=== PATIENT | female | born 1995 | race African-American/Black ===

== ENCOUNTER 2019-12-19 19:27 | Emergency (ER) | payer MEDICARE ==
[~2019-12-19] VITALS: Ht 160 cm; Wt 97.5 kg
--- OUTSIDE RECORDS SUMMARY | 2019-12-19 19:31 | XMS REPORT ---
[facility] Address Unknown Phone Unavailable Care Team Providers Care Culture Room Worker Name Role Phone Ella MODI Unavailable Unavailable Payers Payer Name Policy Type Policy Number Effective Date Expiration Date Problems This patient has no known problems. Allergies, Adverse Reactions, Alerts Allergy Name Allergy Type Status Severity Reaction(s) Onset Date Inactive Date Treating Clinician Comments azithromycin DA Active U 2019-10-04 00:00:00 azithromycin DA Active U 2018-08-24 00:00:00 azithromycin DA Active U 2014-08-15 00:00:00 Medications This patient has no known medications. Results Test Description Test Time Test Comments Text Results Atomic Results Result Comments COMPREHENSIVE METABOLIC PANEL 2019-10-04 15:24:00 SODIUM (test code=NA) 138 mEq/L 135-145 POTASSIUM (test code=K) 3.9 mEq/L 3.5-5.0 CHLORIDE (test code=CL) 103 mEq/L 100-115 CARBON DIOXIDE (test code=CO2) 27 mEq/L 22-31 ANION GAP (test code=GAP) 12.10 10-20 GLUCOSE (test code=GLU) 84 mg/dL 65-110 BLOOD UREA NITROGEN (test code=BUN) 14 mg/dL 7-18 GLOMERULAR FILTRATION RATE (test code=GFR) 138 ml/min >60 CREATININE (test code=CREAT) 0.6 mg/dL 0.5-1.0 TOTAL PROTEIN (test code=PROT) 7.1 gm/dL 6.3-8.2 ALBUMIN (test code=ALB) 3.5 gm/dL 3.4-4.8 CALCIUM (test code=CA) 8.9 mg/dL 8.4-10.2 BILIRUBIN TOTAL (test code=BILT) 0.3 mg/dL 0.2-1.0 SGOT/AST (test code=AST) 12 units/L 15-37 SGPT/ALT (test code=ALT) 18 units/L 12-78 ALKALINE PHOSPHATASE TOTAL (test code=ALKP) 64 units/L 46-116 UR HCG [id number] 14:39:00* Test Item Value Reference Range Comments UR HCG QUAL (test code=HCGQLU) NEGATIVE 1. Very dilute urine specimens, as indicated by a lowspecific gravity, may not contain pest control service representative levels ofhCG. 2. False negative results may occur when the levels of hCGare below the sensitivity level of the test. If is still suspected, a first morningurine specimen should be collected 48 hours later andtested. CBC W/AUTO [id number] 14:37:00* Test Item Value Reference Range Comments WHITE BLOOD CELL (test code=WBC) 7.1 K/mm3 6.6-12.1 RED BLOOD CELL (test code=RBC) 3.97 M/mm3 3.45-5.01 HEMOGLOBIN (test code=HGB) 9.0 g/dL 10.7-13.9 HEMATOCRIT (test code=HCT) 30.7 % 32.1-42.1 MEAN CELL VOLUME (test code=MCV) 77 fL 84.1-94.8 MEAN CELL HGB (test code=MCH) 22.7 pg 27-35 MEAN CELL HGB CONCETRATION (test code=MCHC) 29.3 gm/dL 32.2-34.1 RED CELL DISTRIBUTION WIDTH (test code=RDW) 13.1 % 12.4-16.5 PLATELET COUNT (test code=PLT) 344 K/mm3 133-385 IMMATURE PLATELET FRACTION (test code=IPF) 0.0 % 0.0-10.8 MEAN PLATELET VOLUME (test code=MPV) 9.8 fl 9.1-12.7 NEUTROPHIL % (test code=NT%) 52.9 % 56.5-79.4 LYMPHOCYTE % (test code=LY%) 31.5 % 14.3-34.3 MONOCYTE % (test code=MO%) 11.5 % 5.1-10.4 EOSINOPHIL % (test code=EO%) 3.1 % 0.1-3.0 BASOPHIL % (test code=BA%) 0.7 % 0.1-1.0 NEUTROPHIL # (test code=NT#) 3.8 K/mm3 LYMPHOCYTE # (test code=LY#) 2.2 K/mm3 MONOCYTE # (test code=MO#) 0.8 K/mm3 EOSINOPHIL # (test code=EO#) 0.22 K/mm3 BASOPHIL # (test code=BA#) 0.1 K/mm3 RBC MORPHOLOGY REQUIRED (test code=RBCM) NORMAL NORMAL PLATELET MORPHOLOGY REQUIRED (test code=PLTMR) NORMAL NORMAL UA RFLX MICR CULT IF [id number] 14:12:00* Test Item Value Reference Range Comments UA COLOR (test code=COLU) YELLOW YELLOW UA APPEARANCE (test code=APPU) Slightly-Cloudy CLEAR UA GLUCOSE DIPSTICK (test code=DGLUU) NEGATIVE NEG UA BILIRUBIN DIPSTICK (test code=BILU) NEGATIVE NEG UA KETONE DIPSTICK (test code=KETU) NEGATIVE NEG UA SPECIFIC GRAVITY (test code=SGU) 1.023 1.001-1.035 UA BLOOD DIPSTICK (test code=KADI) NEG NEG UA PH DIPSTICK (test code=JUNITO) 6.0 5-9 UA PROTEIN DIPSTICK (test code=PROU) NEGATIVE NEG UA UROBILINIOGEN DIPSTICK (test code=URO) 2.0 mg/dL NEG UA NITRITE DIPSTICK (test code=ANCA) NEG NEG UA LEUKOCYTE ESTERASE DIPSTICK (test code=LEUU) 3+ NEG UA WBC (test code=WBCU) 21-30 #/hpf NONE SEEN UA RBC (test code=RBCU) 3-5 #/hpf NONE SEEN UA EPITHELIAL CELLS (test code=EPIU) MODERATE #/HPF RARE-FEW UA BACTERIA (test code=BACU) FEW /HPF RARE-FEW UA MUCUS (test code=MUCU) RARE NONE SEEN Indication for culture: Suprapubic PainWET [id number] 13:21:00* Test Item Value Reference Range Comments WBC WET PREP (BEAKER) (test qfvu=080) Few white blood cells seen CLUE CELLS (BEAKER) (test xgcn=394) Moderate clue cells seen YEAST WET PREP (BEAKER) (test ytmx=098) No budding yeast seen TRICH WET PREP (BEAKER) (test quid=465) No Trichomonas seen BACT WET PREP (BEAKER) (test lggv=774) Many bacteria seen URINALYSIS W/ [id number] 13:13:00* Test Item Value Reference Range Comments COLOR (BEAKER) (test exii=656) Yellow CLARITY (BEAKER) (test deqh=587) Slightly Cloudy SPECIFIC GRAVITY UA (BEAKER) (test whvj=318) 1.020 1.001-1.035 PH UA (BEAKER) (test hesh=541) 6.5 5.0-8.0 PROTEIN UA (BEAKER) (test iylr=662) Negative Negative GLUCOSE UA (BEAKER) (test obkv=155) Negative Negative KETONES UA (BEAKER) (test vswn=143) Negative Negative BILIRUBIN UA (BEAKER) (test pbbv=233) Negative Negative BLOOD UA (BEAKER) (test bwlo=491) Large Negative NITRITE UA (BEAKER) (test miii=743) Negative Negative LEUKOCYTE ESTERASE UA (BEAKER) (test uknf=601) Negative Negative UROBILINOGEN UA (BEAKER) (test zcqq=868) 0.2 mg/dL 0.2-1.0 BACTERIA (BEAKER) (test qwoi=879) Moderate RBC UA-MANUAL (BEAKER) (test vdbu=5308) 10-20 /HPF WBC UA-MANUAL (BEAKER) (test rwxk=6407) <5 /HPF SQUAMOUS EPITHELIAL MANUAL (BEAKER) (test oxey=8058) 5-10 /HPF SOURCE(BEAKER) (test cdcl=9263) SCREEN, [id number] 13:03:00* Test Item Value Reference Range Comments TEST URINE (BEAKER) (test fcap=549) Negative
--- NOTE | 2019-12-19 20:54 | Diagnostic Imaging Report ---
EXAMINATION: PA and lateral views of the chest. COMPARISON: None CLINICAL HISTORY: Body aches fever DISCUSSION: The lungs are well inflated. No focal airspace consolidation, pleural effusion, or pneumothorax. Cardiomediastinal contour and pulmonary vasculature are within normal limits. No acute osseous abnormalities. IMPRESSION: No acute cardiopulmonary abnormalities. Signed by: Dr. Addy Lozano M.D. on 12/19/2019 8:51 PM
[2019-12-19 20:57] LABS: INFLUENZAE A&B ANTIGEN (RAPID) NEGATIVE (NEGATIVE); STREPTOCOCCUS GRP A ANTIGEN NEGATIVE (NEGATIVE)
== END 2019-12-19 21:32 | disposition home or self-care (01) ==
LOC: ER 19:27
DX: R50.9 Fever, unspecified (principal); R05 Cough; J02.9 Acute pharyngitis, unspecified
CPT/HCPCS: 71046; 83518; 87070; 87400; 99283

== ENCOUNTER 2020-04-05 21:22 | Emergency (ER) | payer SELFPAY ==
[~2020-04-05] VITALS: Ht 160 cm; Wt 97.5 kg
--- NOTE | 2020-04-05 21:45 | Emergency Department Note ---
History of Present Illnes History of Present Illness Chief Complaint: General Medicine Complaints History of Present Illness This is a 24 year old female presents to the ED for one day history of fevers and body aches. . Historian: Patient Arrival Mode: Car Onset (how long ago): day(s) (1) Onset quality: gradual Duration (how long): day(s) (1) Timing of current episode: constant Progression: unchanged Chronicity: new Relieving factors: none Exacerbating factors: none Past Medical/Family History Physician Review I have reviewed the patient's past medical and family history. Any updates have been documented here. Past Medical History Recent Fever: No Clinical Suspicion of Infectio: No New/Unexplained Change in Ment: No Past Medical History: Anemia Past Surgical History: None Social History Smoking Cessation: Never Smoker Alcohol Use: None Any Illegal Drug Use: No Other Last Tetanus: utd Review of Systems Review of Systems Constitutional: Reports fever, Reports malaise EENTM: Reports no symptoms Cardiovascular: Reports no symptoms Respiratory: Reports no symptoms Gastrointestinal: Reports no symptoms Genitourinary: Reports no symptoms Musculoskeletal: Reports no symptoms Integumentary: Reports no symptoms Neurological: Reports no symptoms Psychological: Reports no symptoms Endocrine: Reports no symptoms Hematological/Lymphatic: Reports no symptoms Physical Exam Related Data Allergies: Coded Allergies: azithromycin (Verified Allergy, Intermediate, 12/19/19) Triage Vital Signs Vital Signs Date Time Temp Pulse Resp B/P (MAP) Pulse Ox O2 Delivery O2 Flow Rate FiO2 04/05/20 21:37 99.7 89 18 127/84 100 Vital signs reviewed: Yes Physical Exam CONSTITUTIONAL Constitutional: Present well-developed, Present well-nourished HENT HENT: Present normocephalic, Present atraumatic, Present oropharynx clear/moist, Present nose normal HENT L/R: Present left ext ear normal, Present right ext ear normal EYES Eyes: Reports PERRL, Reports conjunctivae normal NECK Neck: Present ROM normal PULMONARY Pulmonary: Present effort normal, Present breath sounds normal CARDIOVASCULAR Cardiovascular: Present regular rhythm, Present heart sounds normal, Present capillary refill normal, Present normal rate GASTROINTESTINAL Abdominal: Present soft, Present nontender, Present bowel sounds normal GENITOURINARY Genitourinary: Present exam deferred SKIN Skin: Present warm, Present dry MUSCULOSKELETAL Musculoskeletal: Present ROM normal NEUROLOGICAL Neurological: Present alert, Present oriented x 3, Present no gross motor or sensory deficits PSYCHOLOGICAL Psychological: Present mood/affect normal, Present judgement normal Assessment & Plan Medical Decision Making MDM 24 year old female with fever and body aches. Patient seen at bedside non-toxic. oxygen saturation at 100 % on RA. COVID-19 not ruled out . Patient given resources for outpatient testing. Assessment & Plan Final Impression: (1) Viral syndrome Depart Disposition: HOME, SELF-CARE Last Vital Signs Date Time Temp Pulse Resp B/P (MAP) Pulse Ox O2 Delivery O2 Flow Rate FiO2 04/05/20 21:48 86 20 100 04/05/20 21:37 99.7 127/84 DANIEL BOLTON DO Apr 05, 2020 21:45
[2020-04-05 21:48] VITALS: BP 127/84
== END 2020-04-05 21:53 | disposition home or self-care (01) ==
LOC: ER 21:22
DX: R50.9 Fever, unspecified (principal); B34.9 Viral infection, unspecified; D64.9 Anemia, unspecified
CPT/HCPCS: 99283